=== PATIENT | female | born 1930 | race Caucasian/White ===

== ENCOUNTER 2016-05-18 10:53 | Emergency (ER) | payer OTHER ==
[2016-05-18] MEDS ORDERED: TYLENOL WITH CODEINE #3 PO ONE (11:51)
--- NOTE | 2016-05-18 11:55 | PROVIDER DOCUMENTATION ---
HPI-Musculoskeletal Pain/Inj - GENERAL Chief Complaint: Extremity Injury Stated Complaint: EXTREMITY INJURY Time Seen by Provider: 05/18/16 10:57 Past History - Adult - PAST MEDICAL HISTORY-ADULT Major Childhood Illnesses: reports: denies history Cardiovascular: reports: HTN Respiratory: reports: denies history Gastrointestinal: reports: denies history Obstetrical/Gynecological: reports: denies history Genitourinary: reports: denies history Musculoskeletal: reports: denies history Neurological: reports: denies history Endocrine/Immune: reports: denies history Other Conditions: reports: denies history - PRIOR SURGERIES/PROCEDURES Surgical/Procedure History: reports: tonsillectomy - FAMILY HISTORY Family History: reviewed, not pertinent Departure - Departure Time of Disposition Order: 11:52 DIAGNOSIS: Metatarsal bone fracture Qualifiers: Encounter type: initial encounter Metatarsal bone: fifth Fracture type: closed Fracture alignment: nondisplaced Laterality: left Qualified Code(s): S92.355A - Nondisplaced fracture of fifth metatarsal bone, left foot, initial encounter for closed fracture Disposition: HOME 01 Certified Medical Emergency: Urgent Condition: Good Additional Instructions: Take medication as prescribed. Rest and elevate foot. Follow up with an orthopedist. ED Follow Up Instructions: You have been treated by a care provider in the Emergency Department. These instructions are being provided to you so you can have an understanding of how to care for yourself upon discharge. Upon discharge from the Emergency Department, you are responsible for making arrangements for follow-up care by a physician of your choice. Take all prescribed medications as directed. Return to the Emergency Department immediately for any new or worsening symptoms. You may call the Physician Referral phone number at [phone] to obtain a list of Physicians who are taking new patients. Prescriptions: Acetaminophen with Codeine [Tylenol with Codeine #3] 1 each PO Q4H PRN PRN #14 tablet PRN Reason: Pain Referrals: Amandeep Gunn MD [Primary Care Provider] - Shawn Patel MD [STAFF PHYSICIAN] - Attestation - Physician/ ISAIAH Attestation Patient care was provided by Advanced Practice Provider:: Yes Advanced Practice Provider:: Matias Jameson Advanced Practice Provider documentation review:: The Mid-level provider documentation, treatment plan and medical decision making was reviewed by the physician who agrees with all treatment and medical decision making by the P.
--- NOTE | 2016-05-18 11:56 | PROVIDER DOCUMENTATION ---
HPI-Musculoskeletal Pain/Inj - GENERAL Chief Complaint: Extremity Injury Stated Complaint: EXTREMITY INJURY Time Seen by Provider: 05/18/16 10:57 Source: patient - HX OF PRESENT ILLNESS-MUSKULOSKELTAL Nature of Presenting Problem: Pt is 85 y/o F presents to the ED with L foot pain and R knee pain. Pt states tripped and fell last night. Pt denies LOC. Quality of Pain: reports: aching Severity in ED: mild Onset/Duration: last night Timing: still present Modifying Factors: improves with: nothing Any recent injury?: Yes (fell ) Locality of Occurance: Home Similar Symptoms Previously?: Yes Recently seen or treated by another doctor?: No - FALL INJURY Location of Pain/Injury: reports: lower extremity (R knee), feet (L foot) Pain Radiation: reports: no radiation Reason for Fall: reports: tripped Symptoms prior to fall:: reports: none Loss of Consciousness: no loss of consciousness Injury Associated Symptoms: reports: unable to bear weight, trouble walking. denies: arm pain, back/neck pain, chest pain, diaphoresis, dizziness, headaches , joint pain, muscle aches, nausea, puncture wound, shortness of breath, sensory /motor loss, snap/crack/pop sensation, pain with inspiration, vomiting, weakness - LOWER EXTREMITY PAIN/INJURY Lower Extremities Pain: knee: right (pain ), foot: left (pain ) Context / Method of Injury: reports: fell Associated Symptoms: reports: weakness in legs/feet (L). denies: loss of bladder control, loss of bowel control, lower back pain, muscle spasms, numbness in legs/feet, sensory/motor loss, tingling in legs/feet Review of Systems - Adult - REVIEW OF SYSTEMS - ADULT Constitutional: denies: chills, fever Eyes: denies: blurred vision, double vision Ears, Nose, Mouth & Throat: denies: ear pain, nose pain, throat pain Cardiovascular: denies: chest pain, heart murmur, irregular heart rate Respiratory: denies: cough, shortness of breath, wheezing Gastrointestinal: denies: abdominal pain, diarrhea, nausea, vomiting Genitourinary: denies: dysuria, hematuria Musculoskeletal: reports: other (R knee and L foot). denies: bone pain, joint pain, neck pain Integumentary: denies: hives, itching Neurological: denies: dizziness/vertigo, headache/migraines Psychiatric: reports: no symptoms reported Endocrine: reports: no symptoms reported Hematologic/Lymphatic: reports: no symptoms reported Allergic/Immunologic: reports: no symptoms reported All Other Systems: Reviewed and Negative Past History - Adult - PAST MEDICAL HISTORY-ADULT Review of Records: reports: Nursing Assessment Review, Medications Reviewed, Social history reviewed & non-contributory. Major Childhood Illnesses: reports: denies history Cardiovascular: reports: HTN Respiratory: reports: denies history Gastrointestinal: reports: denies history Obstetrical/Gynecological: reports: denies history Genitourinary: reports: denies history Musculoskeletal: reports: denies history Neurological: reports: denies history Endocrine/Immune: reports: denies history Other Conditions: reports: denies history - PRIOR SURGERIES/PROCEDURES Surgical/Procedure History: reports: tonsillectomy - IMMUNIZATION STATUS Childhood Immunizations: See Nurse Assessment Flu Vaccine: See Nurse Assessment - FAMILY HISTORY Family History: reviewed, not pertinent - SOCIAL HISTORY Smoking: denies Substance Use: denies Living Situation: family Physical Exam-Injury Related - Physical Exam-Injury Related Initial Vital Signs Reviewed: Yes General Appearance: appears well, alert, no apparent distress Eyes: PERRL/EOMI, pink conjunctivae, fundi clear, no AV nicking Head, Ears, Nose, Mouth & Throat: normocephalic/atraumatic, moist mucous membranes, normal ENT inspection, TMs normal, pharynx normal Neck: non-tender, full range of motion, supple, normal inspection Respiratory: chest non-tender, lungs clear, normal breath sounds, no pleuratic chest pain, no respiratory distress, no accessory muscle use Cardiovascular: normal peripheral pulses, regular rate, rhythm, no edema, no gallop, no JVD, no murmur Abdominal Exam: normal bowel sounds, non tender, soft, no organomegaly, no pulsatile mass Lymphatic: no adenopathy Back Exam: normal inspection, no CVA tenderness, no vertebral tenderness Extremity: tenderness (L foot and R knee). negative: normal range of motion ( limited ROM to L foot), normal gait, normal inspection Integumentary: normal color, warm/dry, ecchymosis (L foot) Neurologic: ecologist technician II-XII nml as tested, grossly normal, no motor/sensory deficits Psych/Mental Status: normal mood/affect, normal thought content, normal thought process, oriented x 3 Progress - PLAN OF CARE/RESULTS Progress/Plan/Lab Results: Orders Category Date Time Status Boot, Mid-Calf Walking DIRECTED Care 05/18/16 11:51 Active ANKLE COMPLETE LEFT [RAD] Stat Exams 05/18/16 11:03 Taken FOOT COMPLETE LEFT [RAD] Stat Exams 05/18/16 11:09 Taken KNEE 3 VIEWS RIGHT [RAD] Stat Exams 05/18/16 11:03 Taken Acetaminophen with Codeine [Tylenol with Codeine #3] Med 05/18/16 11:51 Discontinued 1 each PO NOW ONE Vital Signs - 24 hr 05/18/16 10:56 Temperature 97.8 F Pulse Rate 97 H Respiratory 18 Rate Blood Pressure 138/68 O2 Sat by Pulse 100 Oximetry - XRAY 1 XRAY: Right XRAY Study: Knee Impression: Normal XRAY Interpretation: negative per RICARDO Parra 2 XRAY: Left XRAY Study: Foot Impression: Abnormal XRAY Interpretation: 5th metatarsal fracture per RICARDO Parra Departure - Departure Time of Disposition Order: 11:58 DIAGNOSIS: Metatarsal bone fracture Qualifiers: Encounter type: initial encounter Metatarsal bone: fifth Fracture type: closed Fracture alignment: nondisplaced Laterality: left Qualified Code(s): S92.355A - Nondisplaced fracture of fifth metatarsal bone, left foot, initial encounter for closed fracture Disposition: HOME 01 Certified Medical Emergency: Emergent Condition: Stable Additional Instructions: Take medication as prescribed. Rest and elevate foot. Follow up with an orthopedist. ED Follow Up Instructions: You have been treated by a care provider in the Emergency Department. These instructions are being provided to you so you can have an understanding of how to care for yourself upon discharge. Upon discharge from the Emergency Department, you are responsible for making arrangements for follow-up care by a physician of your choice. Take all prescribed medications as directed. Return to the Emergency Department immediately for any new or worsening symptoms. You may call the Physician Referral phone number at [phone] to obtain a list of Physicians who are taking new patients. Prescriptions: Acetaminophen with Codeine [Tylenol with Codeine #3] 1 each PO Q4H PRN PRN #14 tablet PRN Reason: Pain Referrals: Shawn Patel MD [STAFF PHYSICIAN] - Amandeep Gunn MD [Primary Care Provider] - Instructions: Metatarsal Fracture with Rehab-SportsMed, Acetaminophen; Codeine tablets Attestation - Scribe Verification/Attestation Scribe:: Celina Lara Acting as Scribe for:: Matias Jameson Scribe documention review:: This chart was documented by a scribe and accurately reflects the service the provider performed and the decisions made by the provider.
[2016-05-18 12:14] VITALS: BP 132/66
--- NOTE | 2016-05-18 13:18 | Diag Imaging Result Document ---
PROCEDURE NAME: FOOT COMPLETE LEFT - 05/18/2016 LEFT FOOT, 3 VIEWS: FINDINGS: The bones are possibly osteopenic. There is hallux valgus. There is a nondisplaced fracture of the proximal 5th metatarsal. There is no other fracture or dislocation identified. There are atherosclerotic calcifications noted. IMPRESSION: Nondisplaced fracture of proximal 5th metatarsal.
--- NOTE | 2016-05-18 13:25 | Diag Imaging Result Document ---
PROCEDURE NAME: KNEE 3 VIEWS RIGHT - 05/18/2016 RIGHT KNEE, 3 VIEWS: FINDINGS: The bones are possibly osteopenic. The medial tibial femoral joint appears mildly narrowed which may relate to mild degenerative change. There is no fracture or dislocation identified. There are atherosclerotic calcifications noted. IMPRESSION: No evidence of fracture or dislocation. There are atherosclerotic calcifications noted.
--- NOTE | 2016-05-18 13:38 | Diag Imaging Result Document ---
PROCEDURE NAME: ANKLE COMPLETE LEFT - 05/18/2016 LEFT ANKLE 3 VIEWS: FINDINGS: There is no fracture or dislocation identified. There are atherosclerotic calcifications noted. IMPRESSION: No evidence of fracture or dislocation.
== END 2016-05-18 12:55 | disposition home or self-care (01) ==
LOC: P.ED 10:53
DX: S92.355A Nondisplaced fracture of fifth metatarsal bone, left foot, initial encounter for closed fracture (principal); S90.32XA Contusion of left foot, initial encounter; M79.672 Pain in left foot; M25.561 Pain in right knee; R26.2 Difficulty in walking, not elsewhere classified; M62.81 Muscle weakness (generalized); I10 Essential (primary) hypertension; W01.0XXA Fall on same level from slipping, tripping and stumbling without subsequent striking against object, initial encounter
CPT/HCPCS: 99283